=== PATIENT | female | born 1995 | race Caucasian/White ===

== ENCOUNTER 2018-04-05 12:21 | Emergency (ER) | END 2018-04-05 14:08 | disposition home or self-care (01) ==

== ENCOUNTER 2018-10-02 12:37 | Emergency (ER) | payer SELFPAY ==
[~2018-10-02] VITALS: Ht 157.5 cm; Wt 68.2 kg
[~2018-10-02 12:37] MED LIST: ACET325T33 PO; CEPH-443 PO; HYDR-3498 PO; IBUP-1542 PO; ONDA4TAB14 PO; PENI500T PO; TRAM50TA PO
[2018-10-02 12:46] VITALS: Ht 157.5 cm; Wt 68.2 kg
[2018-10-02] MEDS ORDERED: FAMOTIDINE 20 MG INJ IV STA (13:52)
[2018-10-02] MEDS ORDERED: ONDANSETRON 4 MG INJ IV STA (13:52)
[2018-10-02] MEDS ORDERED: SOD CHLORIDE 0.9% 500 ML IV STA (13:52)
[2018-10-02] MEDS ORDERED: ACETAMINOPHEN 325 MG TAB PO ONE (16:00)
[2018-10-02] MEDS ORDERED: ONDA4TAB14 PO (16:30)
[2018-10-02] MEDS ORDERED: ACET500C5 PO (16:30)
[2018-10-02] MEDS ORDERED: FAMO-96 PO (16:30)
[2018-10-02 16:43] VITALS: BP 104/56; PULSE 107; RESP 18
--- NOTE | 2018-10-02 18:00 | ERD ---
ER Documentation Chief Complaint Chief Complaint FEVER AND VOMITITNG HPI 23-year-old female patient with no significant past medical history presents to the ED complaining of fever, vomiting, epigastric pain that started about 3 days ago. Patient reports that when she swallows solids, it worsens her pain, is still able to swallow liquids. Denies any chest pain, shortness of breath, nausea, vomiting, diarrhea, neck stiffness. ROS All systems reviewed and are negative except as per history of present illness. Medications Home Meds Active Scripts Ondansetron (Ondansetron Odt) 4 Mg Tab.rapdis, 4 MG PO Q6H PRN for NAUSEA AND/OR VOMITING, #10 TAB Prov:SARAH LANE PA-C 10/02/18 Acetaminophen* (Tylophen*) 500 Mg Capsule, 1 CAP PO Q6H PRN for PAIN AND OR ELEVATED TEMP, #20 CAP Prov:SARAH LANE PA-C 10/02/18 Famotidine* (Pepcid*) 20 Mg Tablet, 20 MG PO BID, #20 TAB Prov:SARAH LANE PA-C 10/02/18 Acetaminophen* (Tylenol*) 325 Mg Tablet, 1 TAB PO Q8 PRN for PAIN AND OR ELEVATED TEMP, #20 TAB Prov:DELILAH ROTH PA-C 04/05/18 Ondansetron (Ondansetron Odt) 4 Mg Tab.rapdis, 4 MG PO Q6H PRN for NAUSEA AND/OR VOMITING, #10 TAB Prov:DELILAH ROTH PA-C 04/05/18 Cephalexin* (Keflex*) 500 Mg Capsule, 500 MG PO QID for 5 Days, CAP Prov:ARIEL MOORE MD 01/12/16 Tramadol Hcl* (Ultram*) 50 Mg Tablet, 50 MG PO Q6H PRN for PAIN, #20 TAB Prov:ARIEL MOORE MD 01/12/16 Ibuprofen* (Motrin*) 600 Mg Tab, 600 MG PO Q6, #20 TAB Prov:ARIEL MOORE MD 01/12/16 Hydrocodone Bit-Acetaminophen* ([place]*) 5-325 Mg Tab, 1 TAB PO Q6 PRN for PAIN, #20 TAB Prov:DARYN PARK 11/03/15 Penicillin V Potassium* (Penicillin V K*) 500 Mg Tab, 500 MG PO Q6 for 7 Days, TAB Prov:RIYA LI MD 05/27/15 Hydrocodone Bit-Acetaminophen* ([place]*) 5-325 Mg Tab, 1 TAB PO Q6 PRN for PAIN, #12 TAB Prov:RIYA LI MD 05/27/15 Allergies Allergies: Coded Allergies: No Known Drug Allergy (Verified Allergy, Unknown, 04/05/18) PMhx/Soc History of Surgery: Yes (aPPENDECTOMY) Anesthesia Reaction: No Hx Neurological Disorder: No Hx Respiratory Disorders: Yes (asthma) Hx Cardiac Disorders: No Hx Psychiatric Problems: No Hx Miscellaneous Medical Probl: Yes (high cholesterol) Hx Alcohol Use: No Hx Substance Use: No Hx Tobacco Use: No Smoking Status: Never smoker FmHx Family History: No diabetes, No coronary disease Physical Exam Vitals Vital Signs Date Temp Pulse Resp B/P (MAP) Pulse Ox O2 O2 Flow FiO2 Time Delivery Rate 10/02/18 99.3 107 18 104/56 100 Room Air 16:43 (72) 10/02/18 99.7 125 18 128/61 100 12:46 (83) Physical Exam Const: [id number], well-nourished. In no acute distress. Head: Atraumatic, normocephalic Eyes: Normal Conjunctiva without injection. No purulent discharge. ENT: Normal external ear, nose. Moist oropharynx without tonsillar exudates. Non-erythematous pharynx. Uvula midline. No drooling. No trismus. Neck: No cervical midline tenderness. Full range of motion. No meningismus. No cervical lymphadenopathy. No JVD. Resp: Clear to auscultation bilaterally. No wheezing, rhonchi, rales, or crackles. No accessory muscle use. No retractions. Cardio: Regular rate and rhythm. No murmurs, rubs or gallops. Abd: Soft,epigastric tenderness, non distended. Normal bowel sounds. No palpable masses. No rebound tenderness. No guarding. Negative McBurney's point. Negative psoas sign. Negative obturator sign. Skin: No petechiae or rashes Back: No midline tenderness. No CVA tenderness. Ext: No cyanosis, or edema. Neur: Awake and alert. Normal gait. Normal coordination. Psych: Normal Mood and Affect Results 24 hrs Laboratory Tests Test 10/02/18 14:12 10/02/18 14:17 10/02/18 14:20 Urine Color YELLOW Urine Clarity CLOUDY Urine pH 5.0 Urine Specific [place] 1.024 Urine Ketones NEGATIVE mg/dL Urine Nitrite NEGATIVE mg/dL Urine Bilirubin NEGATIVE mg/dL Urine Urobilinogen 1+ mg/dL Urine Leukocyte Esterase TRACE Harriet/ul Urine Microscopic RBC 2 /HPF Urine Microscopic WBC 7 /HPF Urine Squamous Epithelial Cells FEW /HPF Urine Bacteria FEW /HPF Urine Mucus MANY /HPF Urine Hemoglobin 1+ mg/dL Urine Glucose NEGATIVE mg/dL Urine Total Protein NEGATIVE mg/dl White Blood Count 3.3 10^3/ul Red Blood Count 4.92 10^6/ul Hemoglobin 8.4 g/dl Hematocrit 30.4 % Mean Corpuscular Volume 61.8 fl Mean Corpuscular Hemoglobin 17.1 pg Mean Corpuscular 27.6 g/dl Hemoglobin Concent Red Cell Distribution Width 21.4 % Platelet Count 340 10^3/UL Mean Platelet Volume 9.5 fl Immature Granulocytes % 0.300 % Neutrophils % 63.9 % Lymphocytes % 26.5 % Monocytes % 8.7 % Eosinophils % 0.3 % Basophils % 0.3 % Nucleated Red Blood Cells % 0.0 /100WBC Immature Granulocytes # 0.010 10^3/ul Neutrophils # 2.1 10^3/ul Lymphocytes # 0.9 10^3/ul Monocytes # 0.3 10^3/ul Eosinophils # 0.0 10^3/ul Basophils # 0.0 10^3/ul Nucleated Red Blood Cells # 0.0 10^3/ul Sodium Level 141 mmol/L Potassium Level 4.0 mmol/L Chloride Level 106 mmol/L Carbon Dioxide Level 24 mmol/L Anion Gap 11 Blood Urea Nitrogen 10 mg/dl Creatinine 0.56 mg/dl Est Glomerular Filtrat > 60 mL/min Rate mL/min Glucose Level 93 mg/dl Calcium Level 9.6 mg/dl Total Bilirubin 0.7 mg/dl Direct Bilirubin 0.00 mg/dl Indirect Bilirubin 0.7 mg/dl Aspartate Amino Transf (AST/SGOT) 39 IU/L Alanine 53 IU/L Aminotransferase (ALT/SGPT) Alkaline Phosphatase 93 IU/L Total Protein 8.7 g/dl Albumin 4.7 g/dl Globulin 4.00 g/dl Albumin/Globulin Ratio 1.17 Lipase 82 U/L POC Beta HCG, Qualitative NEGATIVE Current Medications Medications Dose Sig/Gilda Start Time Status Last (Trade) Ordered Route PRN Stop Time Admin Dose Reason Admin Sodium 500 ml @ Q1H STAT 10/02/18 DC 10/02/18 Chloride 500 mls/hr IV 13:52 10/02/18 14:34 14:51 Ondansetron 4 mg ONCE STAT 10/02/18 DC 10/02/18 HCl (Zofran IV 13:52 10/02/18 14:33 Inj) 13:54 Famotidine 20 mg ONCE STAT 10/02/18 DC 10/02/18 (Pepcid Iv) IV 13:52 10/02/18 14:33 13:54 650 mg ONCE ONCE 10/02/18 DC 10/02/18 Acetaminophen PO 16:00 10/02/18 16:04 (Tylenol 16:01 Tab) Procedures/MDM 23-year-old female patient with no significant past medical history presents to ED complaining of fever, vomiting, epigastric pain that started about 3 days ago. Patient is afebrile and nontoxic-appearing. Patient was further worked up with CBC, CMP, lipase, UA, urine . Patient's pain and symptoms have improved after treatment with milligrams IV Zofran, 20 mg IV famotidine, Tylenol 650 mg. CBC: Leukocytosis 8.4 - this is patient's baseline. No e/o anemia. CMP: No e/o severe acidosis, alkalosis, renal failure, diabetic ketoacidosis, liver disease Lipase within normal limits. Urine: trace leukocyte esterase, no nitrites, 1+ hematuria. Urine : Negative Low suspicion for atypical [place], arrhythmias, PE, pneumothorax, pneumonia, ectopic , ovarian torsion, gastritis, GERD, peptic ulcer disease, cholecystitis, choledocholithiasis, cholangitis, pancreatitis, appendicitis, bowel obstruction, ileus, volvulus, nephrolithiasis, pyelonephritis, hepatitis, perforated viscus, diverticulitis, strangulated/incarcerated hernia, DKA, acute abdomen, mesenteric ischemia or other emergent conditions. Diagnosis: Epigastric pain, Headache Discharge medications: Zofran, Tylenol, Famotidine Follow up with primary care physician in 1-2 days. Instructed patient to return to the ED sooner for any worsening symptoms. Patient's questions were answered. Patient is hemodynamically stable. Patient understood and agreed with discharge plan. Patient discharged stable. Disclaimer: Inadvertent spelling and grammatical errors are likely due to EHR/dictation software use and do not reflect on the overall quality of patient care. Also, please note that the electronic time recorded on this note does not necessarily reflect the actual time of the patient encounter. Departure Diagnosis: Primary Impression: Epigastric pain Additional Impression: Headache Headache type: unspecified Headache chronicity pattern: unspecified pattern Intractability: not intractable Qualified Codes: R51 - Headache Condition: Stable Patient Instructions: Gerd (Adult), Headache, Unspecified, Gastritis Vs. Ulcer Referrals: [facility] YOU HAVE RECEIVED A MEDICAL SCREENING EXAM AND THE RESULTS INDICATE THAT YOU DO NOT HAVE A CONDITION THAT REQUIRES URGENT TREATMENT IN THE EMERGENCY DEPARTMENT. FURTHER EVALUATION AND TREATMENT OF YOUR CONDITION CAN WAIT UNTIL YOU ARE SEEN IN YOUR DOCTORS OFFICE WITHIN THE NEXT 1-2 DAYS. IT IS YOUR RESPONSIBILITY TO MAKE AN APPOINTMENT FOR FOLOW-UP CARE. IF YOU HAVE A PRIMARY DOCTOR --you should call your primary doctor and schedule an appointment IF YOU DO NOT HAVE A PRIMARY DOCTOR YOU CAN CALL OUR PHYSICIAN REFERRAL HOTLINE AT IF YOU CAN NOT AFFORD TO SEE A PHYSICIAN YOU CAN CHOSE FROM THE FOLLOWING [facility] [address] [facility]. [facility] [address] [facility] [address] [facility] [facility] [address] [facility] [address] [facility]. [facility]. [address] [facility]. [facility] YOU HAVE RECEIVED A MEDICAL SCREENING EXAM AND THE RESULTS INDICATE THAT YOU DO NOT HAVE A CONDITION THAT REQUIRES URGENT TREATMENT IN THE EMERGENCY DEPARTMENT. FURTHER EVALUATION AND TREATMENT OF YOUR CONDITION CAN WAIT UNTIL YOU ARE SEEN IN YOUR DOCTORS OFFICE WITHIN THE NEXT 1-2 DAYS. IT IS YOUR RESPONSIBILITY TO MAKE AN APPOINTMENT FOR FOLOW-UP CARE. IF YOU HAVE A PRIMARY DOCTOR --you should call your primary doctor and schedule and appointment IF YOU DO NOT HAVE A PRIMARY DOCTOR YOU CAN CALL OUR PHYSICIAN REFERRAL HOTLINE AT . IF YOU CAN NOT AFFORD TO SEE A PHYSICIAN YOU CAN CHOSE FROM THE FOLLOWING [facility] INSTITUTIONS: [facility] [address] [place] [address] [facility] [address] [place] [address] [facility] + [facility] [address] [place] [address] [facility]RGENT [facility]/SPECIALTIES Additional Instructions: Call your primary care doctor TOMORROW for an appointment during the next 2-3 days.See the doctor sooner or return here if your condition worsens before your appointment time. SARAH LANE PA-C October 02, 2018 18:00
== END 2018-10-02 16:44 | disposition home or self-care (01) ==
LOC: FTE 12:37
DX: R10.13 Epigastric pain (principal); J45.909 Unspecified asthma, uncomplicated; R51 Headache; R11.10 Vomiting, unspecified
CPT/HCPCS: 36415; 80053; 81001; 81025; 83690; 85025; 96361; 96374; 96375; 99284; J2405; J7040